=== PATIENT | male | born 1985 | race Caucasian/White ===

== ENCOUNTER 2018-05-22 12:34 | Emergency (ER) | payer MEDICAID ==
[~2018-05-22] VITALS: Ht 182.9 cm; Wt 92.4 kg
[2018-05-22 13:22] VITALS: BP 140/80
== END 2018-05-22 14:53 | disposition home or self-care (01) ==
LOC: ED 14:47
DX: J06.9 Acute upper respiratory infection, unspecified (principal); B34.9 Viral infection, unspecified; F17.210 Nicotine dependence, cigarettes, uncomplicated
CPT/HCPCS: 71046; 99283